=== PATIENT | male | born 1990 | race Caucasian/White ===

== ENCOUNTER 2023-03-15 01:24 | Emergency (ER) | payer SELFPAY ==
[2023-03-15] MEDS ORDERED: Lidocaine 1% 10 ML MDV INJECT ONE (01:48)
[2023-03-15] MEDS ORDERED: Bupivacaine 0.5%/EPINEPHrine 1:200,000 30 ML SDV INJECT ONE (01:51)
== END 2023-03-15 02:31 | disposition home or self-care (01) ==
LOC: JD.ED 01:24
DX: K08.89 Other specified disorders of teeth and supporting structures (principal); I10 Essential (primary) hypertension; J45.909 Unspecified asthma, uncomplicated; E66.9 Obesity, unspecified; Z87.891 Personal history of nicotine dependence; Z88.6 Allergy status to analgesic agent; Z88.0 Allergy status to penicillin; Z68.42 Body mass index [BMI] 45.0-49.9, adult
CPT/HCPCS: 64400; 99282; J3490

== ENCOUNTER 2023-03-28 22:37 | Emergency (ER) | payer MEDICAID ==
[2023-03-29] MEDS ORDERED: Ibuprofen 600 MG Tab PO ONE (00:33)
[2023-03-29] MEDS ORDERED: Acetaminophen 325 MG Tab PO ONE (00:33)
== END 2023-03-29 00:52 | disposition home or self-care (01) ==
LOC: JD.ED 22:37
DX: S63.501A Unspecified sprain of right wrist, initial encounter (principal); I10 Essential (primary) hypertension; J45.909 Unspecified asthma, uncomplicated; E66.9 Obesity, unspecified; Z88.6 Allergy status to analgesic agent; Z88.0 Allergy status to penicillin; Z88.8 Allergy status to other drugs, medicaments and biological substances; Z79.899 Other long term (current) drug therapy; W01.0XXA Fall on same level from slipping, tripping and stumbling without subsequent striking against object, initial encounter; Y93.E2 Activity, laundry; Y92.039 Unspecified place in apartment as the place of occurrence of the external cause
CPT/HCPCS: 73110; 99283; A9270